=== PATIENT | female | born 1980 | race Two or more races ===

== ENCOUNTER 2018-12-04 08:06 | Emergency (ER) | payer BC ==
[~2018-12-04] VITALS: Ht 167.6 cm; Wt 72.6 kg
--- NOTE | 2018-12-04 08:20 | NUR ---
C/O VAGINAL BLEED SINCE SATURDAY "STARTED SPOTTING NOW IS MORE HEAVIER" PT IS 4 WEEKS . PATIENT A/OX3, BREATHING EVEN AND UNLABORED. UA SENT TO LAB.
--- NOTE | 2018-12-04 08:35 | NUR ---
INSPECTOR ADVANCED COMPOSITE AT BEDSIDE.
[2018-12-04 08:49] LABS: PLATELET COUNT (AUTO) 333 /CMM (150-450); WHITE BLOOD COUNT (AUTO) 7.4 K/uL (4.3-11.0)
[2018-12-04 08:52] LABS: APPEARANCE,URINE Clear (CLEAR); BILIRUBIN,URINE Negative (NEGATIVE); BLOOD, URINE Small Ery/uL (NEGATIVE); COLOR,URINE Yellow (YELLOW); KETONES,URINE Negative (NEGATIVE); LEUKOCYTE ESTERASE ,URINE Negative (NEGATIVE); NITRITE, URINE Positive (NEGATIVE); PROTEIN,URINE Negative (NEGATIVE); UGLUCOSE Negative (NEGATIVE); UROBILINOGEN,URINE 0.2 EU/dL (0.2)
[2018-12-04 08:52] LABS: BASOPHILS % (AUTO) 0.5 % (0.0-2.0); EOSINOPHILS % (AUTO) 4.4 % (0.0-6.0); HEMATOCRIT 37 % (33-45); HEMOGLOBIN 12.6 g/dL (11.5-14.8); LYMPHOCYTES # (AUTO) 2.5 /CMM (0.8-4.8); MEAN CORPUSCULAR HGB CONC 34 g/dl (31.0-36.0); MEAN CORPUSCULAR VOLUME 92 fL (82-100); MONOCYTES # (AUTO) 0.6 /CMM (0.1-1.30); MONOCYTES % (AUTO) 8.3 % (2.0-12.0); NEUTROPHILS % (AUTO) 53.8 % (43.0-81.0); RED BLOOD CELL COUNT(AUTO) 4.05 MIL/uL (4.0-5.2)
[2018-12-04 08:53] LABS: BACTERIA,URINE 1+ /HPF (None Seen); SQUAMOUS EPITHELIAL CELL,UR Few /HPF (None Seen)
--- NOTE | 2018-12-04 09:40 | NUR ---
Patient discharged to home in stable condition. Written and verbal after care instructions given. Patient verbalizes understanding of instruction.
[2018-12-04 10:01] VITALS: BP 117/75
== END 2018-12-04 10:02 | disposition home or self-care (01) ==
LOC: ER 08:09
DX: O20.0 Threatened abortion (principal)
CPT/HCPCS: 36415; 76856-TC; 81000-TC; 84702-TC; 85025-TC

== ENCOUNTER 2019-03-09 09:11 | Day surgery (SDC) | payer BC ==
[2019-03-09] MEDS ORDERED: MORPHINE SULFATE INJ 4 MG/ML DISP.SYRIN IV PRN (12:00)
[2019-03-09] MEDS ORDERED: ONDANSETRON HCL/PF 4 MG/2 ML VIAL IVP PRN (12:00)
[2019-03-09] MEDS ORDERED: IV D5 LR 1,000 ML IV PRN (12:00)
== END 2019-03-09 12:10 | disposition home or self-care (01) ==
LOC: DS 09:11
PROVIDERS: ATTEND Obstetrics & Gynecology
DX: O02.1 Missed abortion (principal); Z3A.01 Less than 8 weeks gestation of pregnancy
CPT/HCPCS: 36415; 59820; 86850; 88305; J1100; J2270; J2704; J3490

== ENCOUNTER 2019-05-05 10:17 | Outpatient (CLI) | payer BC | END 2019-05-05 23:59 | disposition home or self-care (01) | LOC: US 10:17 | PROVIDERS: ATTEND Obstetrics & Gynecology | DX: N83.8 Other noninflammatory disorders of ovary, fallopian tube and broad ligament (principal) | CPT/HCPCS: 76856-TC ==